=== PATIENT | male | born 1980 | race Caucasian/White ===

== ENCOUNTER 2017-06-18 17:50 | Emergency (ER) | payer SELFPAY ==
[2017-06-18] MEDS ORDERED: Sodium Chloride 0.9% 1,000 ML IV ONE (18:33)
[2017-06-18] MEDS ORDERED: Ondansetron 4 MG/2 ML SDV IVPUSH ONE (18:35)
--- NOTE | 2017-06-18 18:43 | EDM.PDOC ---
<Javan Purcell Ayse - Last Filed: 06/18/17 18:37> ED HPI GENERAL MEDICAL PROBLEM - General Chief Complaint: Gastrointestinal Problem Stated Complaint: THROWING UP MAY HAVE HAD BAD FOOD Time Seen by Provider: 06/18/17 18:20 Source of Information: Reports: Patient History Limitations: Reports: No Limitations - History of Present Illness INITIAL COMMENTS - FREE TEXT/NARRATIVE: 36 y/o M with nausea and vomiting and diarrhea x approx 5 hours. Many episodes of nonbloody vomiting and watery nonbloody diarrhea. Started suddenly around 1pm today. Still nauseated. Not tolerating PO fluids. No abdominal pain. Has chills, no known fever. No known ill contacts. No known exposure to contaminated food or water. Works in the [employer], ate at [employer] yesterday. No recent travel. No cough/SOB or additional complaint. - Related Data Allergies Allergy/AdvReac Type Severity Reaction Status Date / Time shellfish derived Allergy Anaphylactic Verified 06/18/17 18:16 Shock Home Meds: Home Meds Ondansetron [Zofran ODT] 4 mg PO Q6H PRN #12 tab.dis 06/18/17 [Rx] Past Medical History - Past Health History Medical/Surgical History: Denies Medical/Surgical History Social & Family History - Tobacco Use Smoking Status *Q: Never Smoker - Recreational Drug Use Recreational Drug Use: No ED ROS GENERAL - Review of Systems Review Of Systems: See Below Constitutional: Reports: Chills, Malaise. Denies: Fever Respiratory: Denies: Shortness of Breath Cardiovascular: Denies: Chest Pain Endocrine: Reports: No Symptoms GI/Abdominal: Reports: Diarrhea, Nausea, Vomiting. Denies: Abdominal Pain : Reports: No Symptoms Musculoskeletal: Reports: No Symptoms ED EXAM, GI/ABD - Physical Exam Exam: See Below Exam Limited By: No Limitations General Appearance: Alert, WD/WN, No Apparent Distress Eyes: Bilateral: Normal Appearance Ears: Normal External Exam Nose: Normal Inspection Throat/Mouth: Other (dry MM) Head: Atraumatic, Normocephalic Neck: Normal Inspection, Supple, Non-Tender, Full Range of Motion Respiratory/Chest: No Respiratory Distress, Lungs Clear, Normal Breath Sounds, Chest Non-Tender Cardiovascular: Normal Peripheral Pulses, Regular Rate, Rhythm, No Murmur GI/Abdominal Exam: Soft, Non-Tender, No Distention. No: Guarding Back Exam: Normal Inspection Extremities: Normal Inspection Neurological: Alert, Oriented, Normal Cognition Psychiatric: Normal Affect, Normal Mood Skin Exam: Warm, Dry, Intact, Normal Color, No Rash Course - Vital Signs Last Recorded V/S: Last Vital Signs Temp 37.1 C 06/18/17 18:16 Pulse 90 06/18/17 18:16 Resp 17 06/18/17 18:16 BP 130/90 06/18/17 18:16 Pulse Ox 98 06/18/17 18:16 - Orders/Labs/Meds Orders: Active Orders 24 hr Category Date Time Status CBC WITH AUTO DIFF [HEME] Stat Lab 06/18/17 18:35 Results Labs: Laboratory Tests 06/18/17 06/18/17 Range/Units 18:35 18:35 WBC 13.86 H (4.23-9.07) K/mm3 RBC 5.72 (4.63-6.08) M/mm3 Hgb 16.8 (13.7-17.5) gm/L Hct 48.9 (40.1-51.0) % MCV 85.5 (79.0-92.2) fl MCH 29.4 (25.7-32.2) pg MCHC 34.4 (32.2-35.5) g/dl RDW Std Deviation 41.3 (35.1-43.9) fL Plt Count 326 (163-337) K/mm3 MPV 11.1 (9.4-12.3) fl Neut % (Auto) 85.8 H (34.0-67.9) % Lymph % (Auto) 6.6 L (21.8-53.1) % Graves % (Auto) 6.7 (5.3-12.2) % Eos % (Auto) 0.8 (0.8-7.0) Baso % (Auto) 0.1 (0.1-1.2) % Neut # (Auto) 11.88 H (1.78-5.38) K/mm3 Lymph # (Auto) 0.92 L (1.32-3.57) K/mm3 Graves # (Auto) 0.93 H (0.30-0.82) K/mm3 Eos # (Auto) 0.11 (0.04-0.54) K/mm3 Baso # (Auto) 0.02 (0.01-0.08) K/mm3 Sodium 137 (136-145) mEq/L Potassium 4.3 (3.5-5.1) mEq/L Chloride 102 (98-107) mEq/L Carbon Dioxide 26 (21-32) mEq/L Anion Gap 13.3 (5-15) BUN 12 (7-18) mg/dL Creatinine 1.4 H (0.7-1.3) mg/dL Est Cr Clr Drug Dosing 83.23 mL/min Estimated GFR (MDRD) 58 (>60) mL/min BUN/Creatinine Ratio 8.6 L (14-18) Glucose 114 H (74-106) mg/dL Calcium 9.1 (8.5-10.1) mg/dL Magnesium 1.6 L (1.8-2.4) mg/dl Total Bilirubin 0.7 (0.2-1.0) mg/dL AST 21 (15-37) U/L ALT 34 (16-63) U/L Alkaline Phosphatase 74 (46-116) U/L Total Protein 9.1 H (6.4-8.2) g/dl Albumin 4.1 (3.4-5.0) g/dl Globulin 5.0 gm/dL Albumin/Globulin Ratio 0.8 L (1-2) Lipase 120 (73-393) U/L Meds: Medications Discontinued Medications Generic Name Dose Route Start Last Admin Trade Name Freq PRN Reason Stop Dose Admin Sodium Chloride 1,000 mls @ 1,000 mls/hr 06/18/17 18:33 06/18/17 18:52 Normal Saline IV 06/18/17 19:32 1,000 mls/hr ONETIME ONE Administration Ondansetron HCl 4 mg 06/18/17 18:35 06/18/17 18:52 Zofran IVPUSH 06/18/17 18:36 4 mg ONETIME ONE Administration - Re-Assessments/Exams Free Text/Narrative Re-Assessment/Exam: 06/18/17 18:40 Suspect possible food-born toxin mediated vs. infectious gastroenteritis. Patient appears mildly dehydrated and is not tolerating PO fluids, will treat with IV fluids and zofran and reeval. Pt signed out to Dr. Law at 1900, awaiting lab results and reevaluation after fluids/meds. Departure - Departure Disposition: Home, Self-Care 01 Clinical Impression: Vomiting, Diarrhea, Dehydration, mild - Discharge Information Prescriptions: Ondansetron [Zofran ODT] 4 mg PO Q6H PRN #12 tab.dis PRN Reason: Nausea Instructions: Vomiting, Adult, Diarrhea, Adult, [id number] Referrals: PCP,None [Primary Care Provider] - Forms: ED Department Discharge Additional Instructions: 1. Drink plenty of fluids. Clear liquids only until you are feeling better and have an appetite and haven't vomited for several hours. Then advance diet slowly. 2. Take ondansetron as needed for nausea. 3. Return to the ED for a recheck if you are feeling worse, especially if you are vomiting without keeping liquids down, have a fever, abdominal pain, or any other worsening concerning symptoms. <Polo Law - Last Filed: 06/18/17 20:10> Course - Re-Assessments/Exams Free Text/Narrative Re-Assessment/Exam: 06/18/17 20:08 Patient doing much better at this time he wants to go home Departure - Departure Time of Disposition: 20:09
== END 2017-06-18 20:08 | disposition home or self-care (01) ==
LOC: JD.ED 17:50
DX: E86.0 Dehydration (principal); R11.2 Nausea with vomiting, unspecified; R19.7 Diarrhea, unspecified; Z91.013 Allergy to seafood
CPT/HCPCS: 36415; 80053; 83690; 83735; 85025; 96361; 96374; 99284; J2405; J7040

== ENCOUNTER 2017-09-23 23:06 | Emergency (ER) | payer SELFPAY ==
[2017-09-23] MEDS ORDERED: carBAMazepine 200 MG Tab PO ONE (23:36)
[2017-09-23] MEDS ORDERED: Ibuprofen 800 MG Tab PO ONE (23:36)
[2017-09-23] MEDS ORDERED: oxyCODONE 5 MG Tab PO ONE (23:41)
--- NOTE | 2017-09-23 23:41 | EDM.PDOC ---
ED HPI GENERAL MEDICAL PROBLEM - General Chief Complaint: General Stated Complaint: nerve pain in jaw and neck Time Seen by Provider: 09/23/17 23:13 Source of Information: Reports: Patient History Limitations: Reports: No Limitations - History of Present Illness INITIAL COMMENTS - FREE TEXT/NARRATIVE: The patient is a 36-year-old male with a chief complaint of right-sided facial and jaw pain. He's had it for 2 or 3 days. No provoking factors. He gets sharp pain that starts from around his ear and travels down his right jawline. The pain is severe. It keeps him up at night. The pain has been fairly constant. No provoking, exacerbating, or relieving factors. No history of similar symptoms previously. Denies dental pain or gum swelling. No fever. No injury. No ear pain. jaw Pain Score (Numeric/FACES): 7 - Related Data Allergies Allergy/AdvReac Type Severity Reaction Status Date / Time shellfish derived Allergy Anaphylactic Verified 06/18/17 18:16 Shock Home Meds: Home Meds Ibuprofen 800 mg PO TID PRN #40 tablet 09/23/17 [Rx] carBAMazepine [Carbamazepine ER] 200 mg PO BID #28 cpmp.12hr 09/23/17 [Rx] Past Medical History - Past Health History Medical/Surgical History: Denies Medical/Surgical History Social & Family History - Family History Family Medical History: Noncontributory - Tobacco Use Smoking Status *Q: Former Smoker Used Tobacco, but Quit: Yes Month/Year Tobacco Last Used: september Second Hand Smoke Exposure: No - Caffeine Use Caffeine Use: Reports: None - Recreational Drug Use Recreational Drug Use: No ED ROS GENERAL - Review of Systems Review Of Systems: See Below Constitutional: Denies: Fever HEENT: Denies: Dental Pain Respiratory: Denies: Shortness of Breath Cardiovascular: Denies: Chest Pain Endocrine: Reports: No Symptoms GI/Abdominal: Denies: Abdominal Pain Musculoskeletal: Reports: No Symptoms Skin: Reports: No Symptoms Neurological: Reports: No Symptoms ED EXAM, GENERAL - Physical Exam Exam: See Below Exam Limited By: No Limitations General Appearance: Alert, WD/WN, No Apparent Distress Eye Exam: Bilateral Eye: Normal Inspection Ears: Normal External Exam, Normal Canal, Hearing Grossly Normal, Normal TMs Nose: Normal Inspection, Normal Mucosa, No Blood Throat/Mouth: Normal Inspection, Normal Lips, Normal Teeth, Normal Gums, Normal Oropharynx, Normal Voice, No Airway Compromise Head: Atraumatic, Normocephalic. No: Facial Swelling, Facial Tenderness Neck: Normal Inspection, Supple, Non-Tender, Full Range of Motion Respiratory/Chest: No Respiratory Distress, Lungs Clear, Normal Breath Sounds, No Accessory Muscle Use Cardiovascular: Normal Peripheral Pulses, Regular Rate, Rhythm, No Edema, No Murmur Neurological: Alert, Oriented, CN II-XII Intact, Normal Cognition, No Motor/ Sensory Deficits Psychiatric: Normal Affect, Normal Mood Skin Exam: Warm, Dry, Intact, Normal Color, No Rash Course - Vital Signs Last Recorded V/S: Last Vital Signs Temp 36.7 C 09/23/17 23:59 Pulse 85 09/23/17 23:15 Resp 15 09/23/17 23:15 BP 162/97 H 09/23/17 23:15 Pulse Ox 96 09/23/17 23:15 - Orders/Labs/Meds Meds: Medications Discontinued Medications Generic Name Dose Route Start Last Admin Trade Name Wangq PRN Reason Stop Dose Admin Carbamazepine 200 mg 09/23/17 23:36 09/23/17 23:54 Tegretol Tab PO 09/23/17 23:37 200 mg ONETIME ONE Administration Ibuprofen 800 mg 09/23/17 23:36 09/23/17 23:54 Motrin PO 09/23/17 23:37 800 mg ONETIME ONE Administration Oxycodone HCl 5 mg 09/23/17 23:41 09/23/17 23:54 Oxycodone PO 09/23/17 23:42 5 mg ONETIME ONE Administration - Re-Assessments/Exams Free Text/Narrative Re-Assessment/Exam: 09/24/17 04:17 His description sounds somewhat consistent with trigeminal neuralgia. He does not have any positive physical exam findings. Pain is more constant than I would expect for trigeminal neuralgia. It is also possibly related to TMJ dysfunction but his TMJ joint is not particularly tender. His dental exam here is benign. Will treat with carbamazepine for possible trigeminal neuralgia and encouraged him to follow up with his primary care provider for further care. Departure - Departure Time of Disposition: 23:41 Disposition: Home, Self-Care 01 Clinical Impression: Trigeminal neuralgia of right side of face - Discharge Information Prescriptions: carBAMazepine [Carbamazepine ER] 200 mg PO BID #28 cpmp.12hr Ibuprofen 800 mg PO TID PRN #40 tablet PRN Reason: Pain Instructions: Trigeminal Neuralgia Referrals: PCP,None [Primary Care Provider] - Forms: ED Department Discharge Additional Instructions: 1. Take ibuprofen as needed for pain. You may take acetaminophen (Tylenol) as well as ibuprofen. Take oxycodone for severe pain, no driving/working while taking oxycodone as it can make you sleepy or confused. 2. Take carbamazepine as prescribed. This is helpful for trigeminal neuralgia, which is nerve pain in the area you're having pain 3. Follow up with a dentist as soon as you're able to make an appointment to make sure there is no dental explanation for your pain 4. Also follow up with the clinic - call [phone] to schedule with a provider here
== END 2017-09-23 23:57 | disposition home or self-care (01) ==
LOC: JD.ED 23:06
DX: G50.0 Trigeminal neuralgia (principal); Z91.013 Allergy to seafood; Z87.891 Personal history of nicotine dependence
CPT/HCPCS: 99283; A9270

== ENCOUNTER 2018-12-05 01:22 | Emergency (ER) | payer SELFPAY ==
--- NOTE | 2018-12-05 02:11 | EDM.PDOC ---
ED HPI GENERAL MEDICAL PROBLEM - General Chief Complaint: ENT Problem Stated Complaint: SWOLLEN/PAINFUL LEFT SIDE OF FACE Time Seen by Provider: 12/05/18 01:43 Source of Information: Reports: Patient History Limitations: Reports: Physical Impairment (Psychiatric impairment?) - History of Present Illness INITIAL COMMENTS - FREE TEXT/NARRATIVE: The patient speaks with loosening of association and tangentiality, suggesting an underlying psychosis. When asked if he has any psychiatric problems, the patient responded that he has ADHD, but denied any other psychiatric problems. He does not know what, if any, medications he is on. His history is likely inaccurate. The patient states that he has had left facial swelling since Saturday, 2018. He is not sure if he has had dental pain, and he is not sure if he has had a fever; he is afebrile here in the emergency department. The patient carried with him a binder of medical information, however, when it was reviewed by his nurse, it was found to belong to a patient at [facility]. [facility] was contacted, and they informed us that the patient just started staying there yesterday, , 12/04/2018. The patient has a prescription for Augmentin 875 , that appears to have been prescribed from the walk-in clinic, likely started either yesterday or the day before. The patient is unable to say. The patient does not have a PCP. Left Face/Facial Pain Score (Numeric/FACES): 10 - Related Data Allergies Allergy/AdvReac Type Severity Reaction Status Date / Time shellfish Allergy Anaphylactic Uncoded 12/05/18 01:33 Shock Home Meds: Home Meds Amoxicillin/Potassium Clav [Augmentin 875-125 Tablet] 1 tab PO BID 12/05/18 [ History] Past Medical History Psychiatric History: Reports: ADHD Social & Family History - Tobacco Use Smoking Status *Q: Former Smoker Years of Tobacco use: 8 Packs/Tins Daily: 2 Month/Year Tobacco Last Used: Quit 2008 - Alcohol Use Alcohol Use History: Yes Date/Time of Last Drink Comment: none since 2018 - Recreational Drug Use Recreational Drug Use: No - Living Situation & Occupation Living situation: Reports: Occupation: Unemployed ED ROS ENT - Review of Systems Review Of Systems: ROS reveals no pertinent complaints other than HPI. ED EXAM, ENT - Physical Exam Exam: See Below Exam Limited By: No Limitations General Appearance: Alert, WD/WN, No Apparent Distress Eye Exam: Bilateral Eye: EOMI, Normal Inspection Ears: Normal External Exam, Normal Canal, Hearing Grossly Normal, Normal TMs Nose: Normal Inspection, Normal Mucousa, No Blood Mouth/Throat: Normal Lips, Normal Oropharynx, Other (Tooth #1 absent. Teeth #2, 3, 4 with advanced decay. Tooth #5 with decay. Tooth #6 with advanced decay. Tooth #7 absent. Tooth #8 with advanced decay to the gingiva. Tooth #9 with advanced decay. Tooth #10 absent. Teeth #11, 12, 13 with advanced decay to the gingiva. Teeth #14, 15 with advanced decay. Tooth #16 absent. Tooth #17 absent. Teeth #18, 19 with advanced decay. Tooth #20 with posterior decay. Tooth #30 with advanced decay. Tooth #32 absent. There is significant swelling to the entire upper gingiva, but no pointing or drainage seen.) Head: Atraumatic, Normocephalic, Facial Swelling (left), Facial Tenderness (left ) Neck: Normal Inspection, Supple, Non-Tender, Full Range of Motion. No: Lymphadenopathy (L), Lymphadenopathy (R) Respiratory/Chest: No Respiratory Distress, Lungs Clear, Normal Breath Sounds, No Accessory Muscle Use Cardiovascular: Normal Peripheral Pulses, Regular Rate, Rhythm, No Edema, No Gallop, No JVD, No Murmur, No Rub GI/Abdominal: Normal Bowel Sounds, Soft, Non-Tender, No Organomegaly, No Distention, No Abnormal Bruit, No Mass (Male) Exam: Deferred Rectal (Males) Exam: Deferred Back: Normal Inspection, Full Range of Motion Extremities: Normal Inspection, Normal Range of Motion, No Pedal Edema, Normal Capillary Refill Neurological: Alert, Oriented, No Motor/Sensory Deficits Psychiatric: Normal Affect Skin: Warm, Dry, Intact, Normal Color, No Rash Course - Vital Signs Last Recorded V/S: Last Vital Signs Temp 36.3 C 12/05/18 01:28 Pulse 82 12/05/18 01:28 Resp 16 12/05/18 01:28 BP 154/105 H 12/05/18 01:28 Pulse Ox 99 12/05/18 01:28 - Orders/Labs/Meds Orders: Active Orders 24 hr Category Date Time Status Maxillofacial with CM [Max Facial Sinus w Cont] [CT] Exams 12/05/18 02:03 Taken Stat Sodium Chloride 0.9% [Normal Saline] 1,000 ml Med 12/05/18 02:15 Active IV ASDIRECTED Medication Orders Sodium Chloride (Normal Saline) 1,000 mls @ 150 mls/hr IV ASDIRECTED RAFI Last Admin: 12/05/18 02:23 Dose: 150 mls/hr Labs: Laboratory Tests 12/05/18 12/05/18 Range/Units 02:15 02:15 WBC 9.40 H (4.23-9.07) K/mm3 RBC 5.25 (4.63-6.08) M/mm3 Hgb 15.0 (13.7-17.5) gm/L Hct 44.8 (40.1-51.0) % MCV 85.3 (79.0-92.2) fl MCH 28.6 (25.7-32.2) pg MCHC 33.5 (32.2-35.5) g/dl RDW Std Deviation 40.9 (35.1-43.9) fL Plt Count 307 (163-337) K/mm3 MPV 10.6 (9.4-12.3) fl Neutrophils % (Manual) 64 H (40-60) % Band Neutrophils % 0 (0-10) % Lymphocytes % (Manual) 22 (20-40) % Atypical Lymphs % 0 % Monocytes % (Manual) 13 H (2-10) % Eosinophils % (Manual) 1 (0.8-7.0) % Basophils % (Manual) 0 L (0.2-1.2) Platelet Estimate Adequate RBC Morph Comment Normal Sodium 140 (136-145) mEq/L Potassium 4.2 (3.5-5.1) mEq/L Chloride 105 (98-107) mEq/L Carbon Dioxide 29 (21-32) mEq/L Anion Gap 10.2 (5-15) BUN 14 (7-18) mg/dL Creatinine 1.1 (0.7-1.3) mg/dL Est Cr Clr Drug Dosing 103.91 mL/min Estimated GFR (MDRD) > 60 (>60) mL/min BUN/Creatinine Ratio 12.7 L (14-18) Glucose 107 H (74-106) mg/dL Calcium 8.9 (8.5-10.1) mg/dL Total Bilirubin 0.4 (0.2-1.0) mg/dL AST 11 L (15-37) U/L ALT 22 (16-63) U/L Alkaline Phosphatase 68 (46-116) U/L Total Protein 7.3 (6.4-8.2) g/dl Albumin 3.2 L (3.4-5.0) g/dl Globulin 4.1 gm/dL Albumin/Globulin Ratio 0.8 L (1-2) Meds: Medications Generic Name Dose Route Start Last Admin Trade Name Costa PRN Reason Stop Dose Admin Sodium Chloride 1,000 mls @ 150 mls/hr 12/05/18 02:15 12/05/18 02:23 Normal Saline IV 150 mls/hr ASDIRECTED [facility] Administration - Re-Assessments/Exams Free Text/Narrative Re-Assessment/Exam: 12/05/18 02:06 The patient's history is unclear, limited due to an apparent psychiatric impairment. The patient is currently residing at [facility], but his diagnosis is not known to us at this time. He may have schizophrenia. Nevertheless, he has left facial swelling, and advanced upper dental decay with gingival swelling. I'm concerned abated a facial abscess, therefore I have ordered a CT maxillofacial with IV contrast to evaluate, along with some blood work. 12/05/18 03:09 The patient is CBC is remarkable for a WBC count slightly elevated at 9.40, but with 0% bandemia. His CMP is remarkable for a blood glucose slightly elevated at 107, but is otherwise unremarkable. CT maxillofacial with contrast is read by [facility] as: 1. Left-sided facial swelling and infiltration consistent with synovitis. No encapsulated fluid collection is identified. 2. Significant periodontal disease. There are periapical lucencies involving numerous teeth, bilaterally, consistent with periapical abscesses or radicular cysts. 3. Mesially-impacted and mandibular third molars bilaterally. 4. Maxillary sinus disease. The above indicates that the patient has a dental and facial infection, but no abscess that requires immediate drainage. The Augmentin hat he is currently on is an appropriate antibiotic choice, but, ultimately, the patient will need to see a dentist. I will discharge him back [facility] with a list of local dentists. Ordinarily, with an infection like this, I would consider prescribing an opioid , however, given the patient's unknown psychiatric history and current residence at [facility], I believe it would be unwise to prescribe an opioid. I am therefore recommending that he take [id number] ibuprofen. Departure - Departure Time of Disposition: 03:18 Disposition: Home, Self-Care 01 Condition: Good Clinical Impression: Dental infection - Discharge Information *PRESCRIPTION DRUG MONITORING PROGRAM REVIEWED*: Not Applicable *COPY OF PRESCRIPTION DRUG MONITORING REPORT IN PATIENT RADHA: Not Applicable Referrals: PCP,None [Primary Care Provider] - Forms: ED Department Discharge Additional Instructions: You were seen in the emergency room for left facial swelling. Workup in the ER included blood work and a CT scan of your face with IV contrast. The CT scan found a soft tissue infection stemming from upper dental infections. Continue to take the Augmentin that you were previously prescribed, one tablet every 12 hours. Take [id number] ibuprofen, 3-4 tablets (600-800 mg) every 8 hours, with food, as needed for discomfort. Follow-up with a dentist at the next available appointment. A list of local dentists has been provided to you. If any other problems, please do not hesitate to return to the ER. - My Orders Last 24 Hours: My Active Orders 12/05/18 02:03 Maxillofacial with CM [Max Facial Sinus w Cont] [CT] Stat 12/05/18 02:15 Sodium Chloride 0.9% [Normal Saline] 1,000 ml IV ASDIRECTED - Assessment/Plan Last 24 Hours: My Active Orders 12/05/18 02:03 Maxillofacial with CM [Max Facial Sinus w Cont] [CT] Stat 12/05/18 02:15 Sodium Chloride 0.9% [Normal Saline] 1,000 ml IV ASDIRECTED
[2018-12-05] MEDS ORDERED: Sodium Chloride 0.9% 1,000 ML IV SCH (02:15)
--- NOTE | 2018-12-05 08:32 | CT ---
Maxillofacial CT Technique: Multiple axial sections through the maxillofacial structures were obtained from below the mandible superiorly through the frontal sinuses. Intravenous contrast was utilized. Reconstructed coronal and sagittal images were reviewed. Findings: Mild areas of mucosal thickening are noted within the inferior maxillary sinuses. No air-fluid levels are seen within the paranasal sinuses. Numerous dental caries appear to be present. Parotid and submandibular salivary glands are within normal limits. Multiple lymph nodes are seen within the neck. Most prominent lymph nodes are on the left side within the lower face. Lymph nodes are most likely enlarged on an inflammatory basis as mild haziness is seen within fat within the left cheek. There are no fluid collections of abscess being seen. Right and left globes are symmetric. Retrobulbar regions are unremarkable. Normal enhancing vascular structures are noted. Impression: 1. Numerous dental caries. 2. Slightly prominent lymph nodes within the left side of the upper neck most likely on an inflammatory basis. Findings compatible with cellulitis noted within the left cheek. 3. No findings of abscess. 4. Minimal mucosal thickening within the maxillary sinuses which is felt to be pre-existing and not acute. Diagnostic code #3 I agree with preliminary report from [facility], finalized on 12/05/18, 4:06 AM Central Time
== END 2018-12-05 04:11 | disposition home or self-care (01) ==
LOC: MERGE 01:22 → JD.ED 01:22
DX: K04.7 Periapical abscess without sinus (principal); Z91.013 Allergy to seafood; Z87.891 Personal history of nicotine dependence
CPT/HCPCS: 36415; 70487; 80053; 85007; 85027; 96360; 96361; 99284; J7040

== ENCOUNTER 2020-03-28 08:46 | Emergency (ER) | payer MEDICAID ==
[2020-03-28] MEDS ORDERED: Famotidine 20 MG/2 ML SDV IVPUSH ONE (09:24)
[2020-03-28] MEDS ORDERED: diphenhydrAMINE 50 MG/ML SDV IVPUSH ONE (09:24)
[2020-03-28] MEDS ORDERED: methylPREDNISolone Sodium Succinate 125 MG/2 ML SDV IVPUSH ONE (09:24)
[2020-03-28] MEDS ORDERED: Sodium Chloride 0.9% 10 ML Syringe FLUSH PRN (09:28)
--- NOTE | 2020-03-28 09:33 | EDM.PDOC ---
ED HPI GENERAL MEDICAL PROBLEM - General Chief Complaint: Skin Complaint Stated Complaint: SKIN COMPLIANT/RASH,SWOLLEN Time Seen by Provider: 03/28/20 09:20 Source of Information: Reports: Patient History Limitations: Reports: No Limitations - History of Present Illness INITIAL COMMENTS - FREE TEXT/NARRATIVE: 39-year-old male presents to the emergency department from [facility] with complaints of rash. Patient states that rash developed overnight and he woke with it this morning. Micropapular rash noted to dorsal aspect of bilateral feet, bilateral calves, left groin, and bilateral hands more involved between the digits. Hands do show some as well. Patient states rash is pruritic and hot. Denies shortness of breath or difficulty breathing. Patient states he tried hydrocortisone this morning and it did not help. States he had ranch dressing last night with his supper for the first time and this has been the only change in his diet. He denies any new laundry detergents, body washes lotions or fragrances. 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 Patient denies any new medications. He states he has been on all of his current medications for over a year. Onset: Today - Related Data Allergies Allergy/AdvReac Type Severity Reaction Status Date / Time shellfish derived Allergy Anaphylactic Verified 06/18/17 18:16 Shock shellfish Allergy Anaphylactic Uncoded 12/05/18 01:33 Shock Home Meds: Home Meds Ibuprofen 800 mg PO TID PRN #40 tablet 09/23/17 [Rx] carBAMazepine [Carbamazepine ER] 200 mg PO BID #28 cpmp.12hr 09/23/17 [Rx] Amoxicillin/Potassium Clav [Augmentin 875-125 Tablet] 1 tab PO BID 12/05/18 [History] Cetirizine [ZyrTEC] 10 mg PO DAILY #20 tab 03/28/20 [Rx] diphenhydrAMINE HCL [Benadryl] 25 mg PO Q6H #30 capsule 03/28/20 [Rx] predniSONE [Prednisone] 20 mg PO ASDIRECTED #15 tablet 03/28/20 [Rx] Past Medical History - Past Health History Medical/Surgical History: Denies Medical/Surgical History Psychiatric History: Reports: ADHD Social & Family History - Family History Family Medical History: No Pertinent Family History - Caffeine Use Caffeine Use: Reports: None - Living Situation & Occupation Living situation: Reports: Occupation: Unemployed ED ROS GENERAL - Review of Systems Review Of Systems: See Below Constitutional: Reports: No Symptoms, Other (Temp 98 2, pulse 122, respiratory rate 20, blood pressure 143/100, pulse ox 94% on room air.) HEENT: Reports: No Symptoms. Denies: Rhinitis, Throat Swelling Respiratory: Reports: No Symptoms. Denies: Shortness of Breath, Wheezing, Cough Cardiovascular: Reports: No Symptoms. Denies: Chest Pain, Lightheadedness, Palpitations Endocrine: Reports: No Symptoms GI/Abdominal: Reports: No Symptoms : Reports: No Symptoms Musculoskeletal: Reports: No Symptoms Skin: Reports: Pruritis, Rash (Dorsal aspect bilateral hands, dorsal aspect of bilateral feet, left groin, back of both calves.) Neurological: Reports: No Symptoms Hematologic/Lymphatic: Reports: No Symptoms Immunologic: Reports: No Symptoms, Food Allergy ED EXAM, SKIN/RASH Exam: See Below Exam Limited By: No Limitations General Appearance: Alert, WD/WN, No Apparent Distress Eye Exam: Bilateral Eye: PERRL Ears: Normal External Exam Nose: Normal Inspection Throat/Mouth: Normal Inspection, Normal Voice, No Airway Compromise Head: Atraumatic, Normocephalic Neck: Normal Inspection, Supple, Non-Tender, Full Range of Motion Respiratory/Chest: No Respiratory Distress, Lungs Clear, Normal Breath Sounds, No Accessory Muscle Use, Chest Non-Tender. No: Respiratory Distress, Wheezing Cardiovascular: Normal Peripheral Pulses, Regular Rate, Rhythm. No: No Edema (Edema noted to bilateral hands.) Peripheral Pulses: 2+: Radial (L), Radial (R), Dorsalis Pedis (L) GI/Abdominal: Normal Bowel Sounds, Soft, Non-Tender, No Distention (Male) Exam: Deferred Rectal (Males) Exam: Deferred Back Exam: Normal Inspection, Full Range of Motion Extremities: Normal Inspection, Normal Range of Motion, Non-Tender, Normal Capillary Refill Neurological: Alert, Oriented, Normal Cognition, No Motor/Sensory Deficits Psychiatric: Normal Affect, Normal Mood Skin: Warm, Dry, Intact, Normal Color, Rash (Micropapular rash noted to dorsal aspect of bilateral feet, the back of both calves, left groin, dorsal aspect bilateral hands primarily between the digits) Location, Skin: Head, Upper Extremity, Right, Upper Extremity, Left, Lower Extremity, Right, Lower Extremity, Left, Groin (Left groin) Characteristics: Maculopapular, Urticarial Associated features: Warmth, Swelling (Bilateral hands) Lymphatic: No Adenopathy Course - Vital Signs Text/Narrative:: 39-year-old male presents to the emergency department with complaints of a rash. He was sent here from [place]. States he woke with the rash this morning. Micropapular rash noted to bilateral hands specifically in between all digits with edema noted. Maculopapular hive-like rash noted to left groin, the back of both calves, and dorsal aspect of both feet. Patient states it is pruritic in nature and feels like fire. Attempted to take cortisone cream which did not help. Lungs are clear, patient denies any difficulty breathing or shortness of breath. States he did try to eat solid last night for supper with ranch dressing. States he has never had ranch dressing before. Denies any new fragrances, perfumes, lotions or laundry detergents. I have ordered Solu-Medrol 125 mg IV, Benadryl 25 mg IV, and Pepcid 20 mg IV. Last Recorded V/S: Last Vital Signs Temp 98.2 F 03/28/20 09:02 Pulse 122 H 03/28/20 09:02 Resp 20 03/28/20 09:02 BP 143/100 H 03/28/20 09:02 Pulse Ox 94 L 03/28/20 09:02 - Orders/Labs/Meds Orders: Active Orders 24 hr Category Date Time Status Sodium Chloride 0.9% [Saline Flush] Med 03/28/20 09:28 Active 10 ml FLUSH ASDIRECTED PRN Saline Lock Insert [OM.PC] Routine Oth 03/28/20 09:28 Ordered Medication Orders Sodium Chloride (Saline Flush) 10 ml FLUSH ASDIRECTED PRN PRN Reason: Keep Vein Open Last Admin: 03/28/20 10:04 Dose: 10 ml Documented by: DAYDAY Meds: Medications Generic Name Dose Route Start Last Admin Trade Name Freq PRN Reason Stop Dose Admin Sodium Chloride 10 ml 03/28/20 09:28 03/28/20 10:04 Saline Flush FLUSH 10 ml ASDIRECTED PRN Administration Keep Vein Open Discontinued Medications Generic Name Dose Route Start Last Admin Trade Name Freq PRN Reason Stop Dose Admin Diphenhydramine HCl 25 mg 03/28/20 09:24 03/28/20 10:04 Benadryl IVPUSH 03/28/20 09:25 25 mg ONETIME ONE Administration Famotidine 20 mg 03/28/20 09:24 03/28/20 09:48 Pepcid IVPUSH 03/28/20 09:25 20 mg ONETIME ONE Administration Methylprednisolone Sodium Succinate 125 mg 03/28/20 09:24 03/28/20 10:03 Solu-Medrol IVPUSH 03/28/20 09:25 125 mg ONETIME ONE Administration - Re-Assessments/Exams Free Text/Narrative Re-Assessment/Exam: 03/28/20 10:38 Patient states rash is much less pruritic. Denies shortness of breath, or difficulty breathing. Reports chronic cough that has had for years. Patient will be discharged home. Departure - Departure Time of Disposition: 10:44 Disposition: Home, Self-Care 01 Condition: Good Clinical Impression: Urticaria, Pruritic rash Allergic reaction Qualifiers: Encounter type: initial encounter Qualified Code(s): T78.40XA - Allergy, unspecified, initial encounter - Discharge Information Prescriptions: diphenhydrAMINE HCL [Benadryl] 25 mg PO Q6H #30 capsule predniSONE [Prednisone] 20 mg PO ASDIRECTED #15 tablet Cetirizine [ZyrTEC] 10 mg PO DAILY #20 tab Instructions: Hives, Hives, [id number], Rash, Adult, [id number] Referrals: PCP,None [Primary Care Provider] - Forms: ED Department Discharge Additional Instructions: You were seen in the emergency department with complaints of allergic reaction. You were given IV Benadryl, and IV steroid called Solu-Medrol, and IV Pepcid. You will receive sent home with a prescription for Benadryl 25 mg that you can take every 6 hours only as needed for itching. You will need to take prednisone 20 mg 1 tablet twice daily for 5 days then 1 tablet daily until gone. Also begin taking Zyrtec 10 mg daily. Should your condition worsen or change or you experience difficulty breathing please return to the emergency department. Sepsis Event Note (ED) - Evaluation Sepsis Screening Result: No Definite Risk - Focused Exam Vital Signs: Vital Signs Temp Pulse Resp BP Pulse Ox 12/21/20 09:02 98.2 F 122 H 20 143/100 H 94 L - My Orders Last 24 Hours: My Active Orders 03/28/20 09:28 Sodium Chloride 0.9% [Saline Flush] 10 ml FLUSH ASDIRECTED PRN Saline Lock Insert [OM.PC] Routine - Assessment/Plan Last 24 Hours: My Active Orders 03/28/20 09:28 Sodium Chloride 0.9% [Saline Flush] 10 ml FLUSH ASDIRECTED PRN Saline Lock Insert [OM.PC] Routine
== END 2020-03-28 11:00 | disposition home or self-care (01) ==
LOC: JD.ED 08:46
DX: L50.0 Allergic urticaria (principal); Z91.013 Allergy to seafood
CPT/HCPCS: 96374; 96375; 99282; J1200; J2930; J3490

== ENCOUNTER 2020-03-31 09:21 | Emergency (ER) | payer MEDICAID ==
--- NOTE | 2020-03-31 09:40 | EDM.PDOC ---
ED HPI GENERAL MEDICAL PROBLEM - General Chief Complaint: Skin Complaint Stated Complaint: RASH NOT BETTER Time Seen by Provider: 03/31/20 09:38 Source of Information: Reports: Patient History Limitations: Reports: No Limitations - History of Present Illness INITIAL COMMENTS - FREE TEXT/NARRATIVE: Patient presents to the ER with complaints of a rash. He was seen by me in the emergency department approximately 3 days ago with complaints of rash. Patient states that rash has spread and he still having a significant amount of itching despite taking prednisone, Zyrtec, and Benadryl as needed. - Related Data Allergies Allergy/AdvReac Type Severity Reaction Status Date / Time shellfish derived Allergy Anaphylactic Verified 03/31/20 09:44 Shock shellfish Allergy Anaphylactic Uncoded 03/31/20 09:44 Shock Home Meds: Home Meds Ibuprofen 800 mg PO TID PRN #40 tablet 09/23/17 [Rx] carBAMazepine [Carbamazepine ER] 200 mg PO BID #28 cpmp.12hr 09/23/17 [Rx] Amoxicillin/Potassium Clav [Augmentin 875-125 Tablet] 1 tab PO BID 12/05/18 [History] Cetirizine [ZyrTEC] 10 mg PO DAILY #20 tab 03/28/20 [Rx] diphenhydrAMINE HCL [Benadryl] 25 mg PO Q6H #30 capsule 03/28/20 [Rx] predniSONE [Prednisone] 20 mg PO ASDIRECTED #15 tablet 03/28/20 [Rx] Famotidine [Pepcid] 20 mg PO BID #21 tab 03/31/20 [Rx] Past Medical History - Past Health History Medical/Surgical History: Denies Medical/Surgical History Psychiatric History: Reports: ADHD Social & Family History - Family History Family Medical History: No Pertinent Family History - Caffeine Use Caffeine Use: Reports: None - Living Situation & Occupation Living situation: Reports: Occupation: Unemployed ED ROS GENERAL - Review of Systems Review Of Systems: See Below Constitutional: Denies: Fever, Chills HEENT: Reports: No Symptoms Respiratory: Reports: No Symptoms. Denies: Shortness of Breath, Wheezing, Cough Cardiovascular: Reports: No Symptoms Endocrine: Reports: No Symptoms GI/Abdominal: Reports: No Symptoms : Reports: No Symptoms Musculoskeletal: Reports: No Symptoms Skin: Reports: Pruritis, Rash, Urticaria Neurological: Reports: No Symptoms Psychiatric: Reports: No Symptoms Hematologic/Lymphatic: Reports: No Symptoms Immunologic: Reports: No Symptoms ED EXAM, SKIN/RASH Exam: See Below Exam Limited By: No Limitations General Appearance: Alert, WD/WN, No Apparent Distress Ears: Hearing Grossly Normal Nose: Normal Inspection Throat/Mouth: Normal Lips, Normal Voice, No Airway Compromise Head: Atraumatic, Normocephalic Neck: Normal Inspection, Supple, Non-Tender Respiratory/Chest: No Respiratory Distress, Lungs Clear, Normal Breath Sounds, No Accessory Muscle Use, Chest Non-Tender Cardiovascular: Normal Peripheral Pulses, Regular Rate, Rhythm, No Edema, No Murmur GI/Abdominal: Normal Bowel Sounds, Soft, Non-Tender, No Distention (Male) Exam: Deferred Rectal (Males) Exam: Deferred Back Exam: Normal Inspection, Full Range of Motion Extremities: Normal Inspection, Normal Range of Motion, Non-Tender, No Pedal Edema, Normal Capillary Refill, Redness (Right lateral thigh to hip urticaria; ventral aspect of left forearm and bilateral elbows, dorsal aspect bilateral hands: Significantly less erythema and edema than 3 days prior.) Neurological: Alert, Oriented, Normal Cognition Psychiatric: Normal Affect, Normal Mood Skin: Warm, Dry, Intact, Rash (Urticaria noted to right lateral thigh up to hip, urticaria noted to bilateral inner forearms and bilateral elbows, urticaria noted to bilateral dorsal aspect of hands however significantly less swelling and erythema noted to hands specifically in between the digits. Urticaria that was previously noted to the dorsal aspects of the patient's feet, medial calves and left groin almost completely resolved.) Location, Skin: Upper Extremity, Right, Upper Extremity, Left, Lower Extremity, Right Characteristics: Urticarial Lymphatic: No Adenopathy Course - Vital Signs Text/Narrative:: Patient presents with complaints of worsening rash since being seen in the emergency department 3 days ago despite being placed on prednisone, Zyrtec, and Benadryl as needed. Patient states that rash has spread to both his forearms and his legs. Upon physical assessment rash is significantly better than what the patient presented with 3 days ago. Patient had significant erythema to the dorsal aspects of both his feet, hands, inner calves and left groin. Today that is significantly less. There is a fine urticarial rash noted to bilateral forearms and elbows. Urticarial rash also noted upper right thigh into his hip. I have ordered that this patient received 40 mg of Pepcid. Last Recorded V/S: Last Vital Signs Temp 97.5 F 03/31/20 09:36 Pulse 108 H 03/31/20 09:36 Resp 18 03/31/20 09:36 BP 176/93 H 03/31/20 09:36 Pulse Ox 96 03/31/20 09:36 - Orders/Labs/Meds Meds: Medications Discontinued Medications Generic Name Dose Route Start Last Admin Trade Name Costa PRN Reason Stop Dose Admin Famotidine 40 mg 03/31/20 09:51 03/31/20 10:24 Pepcid PO 03/31/20 09:52 Not Given NOW STA Famotidine 40 mg 03/31/20 10:23 03/31/20 10:26 Pepcid PO 03/31/20 10:24 Not Given ONETIME ONE Famotidine 40 mg 03/31/20 10:26 03/31/20 10:31 Pepcid PO 03/31/20 10:27 40 mg ONETIME ONE Administration - Re-Assessments/Exams Free Text/Narrative Re-Assessment/Exam: 03/31/20 11:32 Upon reassessment, itching is slightly less. Patient will be discharged home with a prescription for Pepcid to take twice daily for 7 days and then daily for another 7 days. It is recommended that patient see a primary care physician and have a physical with health maintenance, rash could be due to diabetes or thyroid issues. I also recommend that patient follow-up with [facility] in [place] should his rash persist. Departure - Departure Time of Disposition: 11:43 Disposition: Home, Self-Care 01 Condition: Good Clinical Impression: Allergic reaction Qualifiers: Encounter type: initial encounter Qualified Code(s): T78.40XA - Allergy, unspecified, initial encounter - Discharge Information Prescriptions: Famotidine [Pepcid] 20 mg PO BID #21 tab Instructions: Rash, Adult Referrals: PCP,None [Primary Care Provider] - Forms: ED Department Discharge Additional Instructions: In the emergency department with complaints of persistent rash. It appears that the areas of your rash that you were seen for 3 days ago or significantly better however you have some new areas of rash noted on your body. You were given Pepcid 40 mg orally today in the emergency department. I recommend you continue taking your prednisone as prescribed, Zantac as prescribed, and Benadryl as needed. You will be started on a prescription for Pepcid 20 mg twice daily for 7 days and then 20 mg once daily for another 7 days. Continue taking this medication until it is gone. I recommend that you follow-up with [facility] in [place]. Establish care with a primary care provider in [facility]. You have verbalized that you would like to seek care at [facility] in [place]. The phone number is [phone]. There is a possibility that this rash could be due to diabetic or thyroid issues. It is strongly recommended that you have a full physical work-up. Sepsis Event Note (ED) - Focused Exam Vital Signs: Vital Signs Temp Pulse Resp BP Pulse Ox 03/31/20 09:36 97.5 F 108 H 18 176/93 H 96
[2020-03-31] MEDS ORDERED: Famotidine 40 MG/5 ML Bottle PO STA (09:51)
[2020-03-31] MEDS ORDERED: Famotidine 40 MG/5 ML Bottle PO ONE (10:23)
[2020-03-31] MEDS ORDERED: Famotidine 20 MG Tab PO ONE (10:26)
== END 2020-03-31 12:02 | disposition home or self-care (01) ==
LOC: JD.ED 09:21
DX: L50.0 Allergic urticaria (principal); Z79.899 Other long term (current) drug therapy; Z91.013 Allergy to seafood
CPT/HCPCS: 99282; A9270

== ENCOUNTER 2020-07-02 11:19 | Emergency (ER) | payer MEDICAID ==
[2020-07-02] MEDS ORDERED: Ketorolac 60 MG/2 ML SDV IM ONE (11:56)
--- NOTE | 2020-07-02 12:20 | EDM.PDOC ---
ED HPI GENERAL MEDICAL PROBLEM - General Chief Complaint: Flank Pain Stated Complaint: R SIDE RIB PAIN Time Seen by Provider: 07/02/20 11:40 Source of Information: Reports: Patient, RN Notes Reviewed History Limitations: Reports: No Limitations - History of Present Illness INITIAL COMMENTS - FREE TEXT/NARRATIVE: Patient is a 39-year-old male presenting to the emergency department with complaints of right upper back/posterior rib pain as well as pain in his mid back. 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 Pain is made worse by taking a deep breath or moving. He denies any chronic medical conditions. He has no history of kidney stones. Denies any hematuria, dysuria, or bowel or bladder dysfunction. Right Flank Pain Score (Numeric/FACES): 10 - Related Data Allergies Allergy/AdvReac Type Severity Reaction Status Date / Time diphenhydramine Allergy Severe Hives Verified 07/02/20 11:41 [From Benadryl] shellfish derived Allergy Severe Anaphylactic Verified 07/02/20 11:41 Shock shellfish Allergy Severe Anaphylactic Uncoded 07/02/20 11:41 Shock Home Meds: Home Meds Ibuprofen 800 mg PO TID PRN #40 tablet 09/23/17 [Rx] Cyclobenzaprine [Flexeril] 5 mg PO Q8H PRN #5 tab 07/02/20 [Rx] Naproxen [Naprosyn] 500 mg PO Q12HR 5 Days #10 tab 07/02/20 [Rx] Venlafaxine HCl [Venlafaxine ER] 75 mg PO DAILY 07/02/20 [History] lamoTRIgine [Lamotrigine] 3 tab PO BEDTIME 07/02/20 [History] risperiDONE [Risperidone] 1 tab PO BEDTIME 07/02/20 [History] Past Medical History - Past Health History Medical/Surgical History: Denies Medical/Surgical History Psychiatric History: Reports: ADHD Social & Family History - Family History Family Medical History: No Pertinent Family History - Caffeine Use Caffeine Use: Reports: None - Living Situation & Occupation Living situation: Reports: Occupation: Unemployed ED ROS GENERAL - Review of Systems Review Of Systems: Comprehensive ROS is negative, except as noted in HPI. ED EXAM,LOWER BACK PAIN/INJURY - Physical Exam Exam: See Below Exam Limited By: No Limitations General Appearance: Alert, WD/WN, No Apparent Distress Respiratory/Chest: No Respiratory Distress, Lungs Clear, Normal Breath Sounds, No Accessory Muscle Use, Chest Non-Tender Cardiovascular: Normal Peripheral Pulses, Regular Rate, Rhythm, No Edema, No Gallop, No JVD, No Murmur, No Rub Back Exam: Normal Inspection, CVA Tenderness (R), Paraspinal Tenderness (right flank), Vertebral Tenderness (T9-L2). No: Decreased Range of Motion, Muscle Spasm Neurological: Alert, Normal Mood/Affect, Normal Dorsiflexion, CN II-XII Intact, Normal Plantar Flexion, Normal Gait, Normal Reflexes, No Motor/Sensory Deficits, Oriented x 3 Psychiatric: Normal Affect, Normal Mood Skin Exam: Warm, Dry, Intact, Normal Color, No Rash Course - Vital Signs Last Recorded V/S: Last Vital Signs Temp 97.3 F 07/02/20 11:37 Pulse 114 H 07/02/20 11:37 Resp 20 07/02/20 11:37 BP 146/99 H 07/02/20 11:37 Pulse Ox 93 L 07/02/20 11:37 - Orders/Labs/Meds Labs: Laboratory Tests 07/02/20 07/02/20 07/02/20 Range/Units 12:10 13:22 13:22 WBC 10.88 H (4.23-9.07) K/mm3 RBC 5.18 (4.63-6.08) M/mm3 Hgb 15.0 (13.7-17.5) gm/dl Hct 45.0 (40.1-51.0) % MCV 86.9 (79.0-92.2) fl MCH 29.0 (25.7-32.2) pg MCHC 33.3 (32.2-35.5) g/dl RDW Std Deviation 42.7 (35.1-43.9) fL Plt Count 298 (163-337) K/mm3 MPV 10.3 (9.4-12.3) fl Neut % (Auto) 66.7 (34.0-67.9) % Lymph % (Auto) 23.6 (21.8-53.1) % [place] % (Auto) 7.4 (5.3-12.2) % Eos % (Auto) 1.4 (0.8-7.0) Baso % (Auto) 0.6 (0.1-1.2) % Neut # (Auto) 7.27 H (1.78-5.38) K/mm3 Lymph # (Auto) 2.57 (1.32-3.57) K/mm3 [place] # (Auto) 0.80 (0.30-0.82) K/mm3 Eos # (Auto) 0.15 (0.04-0.54) K/mm3 Baso # (Auto) 0.06 (0.01-0.08) K/mm3 Manual Slide Review Sodium 137 (136-145) mEq/L Potassium 4.1 (3.5-5.1) mEq/L Chloride 99 (98-107) mEq/L Carbon Dioxide 24 (21-32) mEq/L Anion Gap 18.1 H (5-15) BUN 13 (7-18) mg/dL Creatinine 1.3 (0.7-1.3) mg/dL Est Cr Clr Drug Dosing 89.58 mL/min Estimated GFR (MDRD) > 60 (>60) mL/min BUN/Creatinine Ratio 10.0 L (14-18) Glucose 134 H (74-106) mg/dL Calcium 9.3 (8.5-10.1) mg/dL Total Bilirubin 0.4 (0.2-1.0) mg/dL AST 67 H (15-37) U/L ALT 96 H (16-63) U/L Alkaline Phosphatase 73 (46-116) U/L Total Protein 8.4 H (6.4-8.2) g/dl Albumin 4.0 (3.4-5.0) g/dl Globulin 4.4 gm/dL Albumin/Globulin Ratio 0.9 L (1-2) Urine Color Yellow (Yellow) Urine Appearance Clear (Clear) Urine pH 5.0 (5.0-8.0) Ur Specific [place] > or = 1.030 (1.005-1.030) Urine Protein 2+ H (Negative) Urine Glucose (UA) Negative (Negative) Urine Ketones Negative (Negative) Urine Occult Blood Trace-lysed H (Negative) Urine Nitrite Negative (Negative) Urine Bilirubin 1+ H (Negative) Urine Urobilinogen 0.2 (0.2-1.0) Ur Leukocyte Esterase Negative (Negative) Urine RBC 10-20 H (0-5) /hpf Urine WBC 0-5 (0-5) /hpf Ur Squamous Epith Cells 0-5 (0-5) /hpf Urine Bacteria Few (FEW) /hpf Urine Mucus Moderate H (FEW) /hpf Meds: Medications Discontinued Medications Generic Name Dose Route Start Last Admin Trade Name Costa PRN Reason Stop Dose Admin Ketorolac Tromethamine 60 mg 07/02/20 11:56 07/02/20 12:03 Ketorolac 60 Mg/2 Ml Sdv IM 07/02/20 11:57 60 mg ONETIME ONE Administration - Re-Assessments/Exams Free Text/Narrative Re-Assessment/Exam: Patient is a 39-year-old male presenting to the emergency department with complaints of acute onset of right-sided flank pain which radiates down to his mid back. 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 He states he was lifting heavy boxes, therefore he thinks that he may have "turned wrong ". On exam, he does have some mild tenderness to palpation over the right flank and right mid spine. He does have CVA tenderness on the right side. While it is likely he is suffering a muscle strain, kidney stone is also in the differential. I have ordered Toradol 60 mg IM as well as urinalysis. 07/02/20 13:00 Urinalysis shows 2+ protein, trace lysed occult blood, 1+ bili, and 10-20 RBCs. Patient is feeling better after the Toradol. Given the hematuria, I have ordered a CT scan of the abdomen pelvis without contrast. I have also ordered CBC and CMP. Patient did have adequate pain relief with the IM Toradol, therefore IV is not needed at this time. 07/02/20 14:00 Hematology was significant for WBC minimally elevated at 10.88, anion gap 18.1, glucose 134, AST 67, ALT 96. CT scan of the abdomen pelvis showed: 1. Moderately enlarged fatty liver. 2. Nonobstructive right sided nephrocalcinosis. No obstructing ureteral or renal calculus. 3. No acute abdominal or pelvic findings. Discussed with patient that his pain is likely due to muscle strain. I will send a prescription for Naprosyn and Flexeril. Discharge instructions as documented. Departure - Departure Time of Disposition: 14:04 Disposition: Home, Self-Care 01 Condition: Good Clinical Impression: Back strain Qualifiers: Encounter type: initial encounter Qualified Code(s): S39.012A - Strain of muscle, fascia and tendon of lower back, initial encounter - Discharge Information *PRESCRIPTION DRUG MONITORING PROGRAM REVIEWED*: No *COPY OF PRESCRIPTION DRUG MONITORING REPORT IN PATIENT RADHA: No Prescriptions: Cyclobenzaprine [Flexeril] 5 mg PO Q8H PRN #5 tab PRN Reason: Muscle Spasm Naproxen [Naprosyn] 500 mg PO Q12HR 5 Days #10 tab Instructions: Kidney Stones, [id number] Referrals: PCP,None [Primary Care Provider] - Forms: ED Department Discharge, ED Return to Work/School Form Additional Instructions: You were seen in the emergency department today for right-sided back pain. Work-up included blood work, urinalysis, and a CT scan. Results of your work-up found to be normal. You do not have a kidney stone. As discussed, your pain is likely due to a muscle strain. While in the ER, you received an injection of Toradol. A prescription for Naprosyn for pain and Flexeril for muscle spasms has been sent. Take these medications as prescribed. A note has been provided off from work for you for tomorrow. Recommend intermittent heat to the area of discomfort. If you are still having significant discomfort after you have finished the treatment of Naprosyn, recommend follow-up in the clinic. Return to ER as needed. Sepsis Event Note (ED) - Evaluation Sepsis Screening Result: No Definite Risk
--- NOTE | 2020-07-03 09:54 | CT ---
CT abdomen and pelvis Technique: Multiple axial sections were obtained from above the dome of the diaphragm inferiorly through the pubic symphysis. Intravenous and oral contrast was not utilized. Reconstructed coronal and sagittal images were obtained. Comparison: No prior abdominal imaging is available. Findings: Visualized lung bases show nothing acute. Liver shows prominent fatty infiltration and is enlarged. Small nodular area of increased density is noted within the right lobe of the liver measuring about 2.2 cm in size which is nonspecific but is most likely benign. Spleen appears normal in size. Small calcification is seen within the spleen. Adrenal glands show no abnormality. Pancreas appears within normal limits. Gallbladder contains no calcified gallstones. Right kidney shows a small nonobstructing stone measuring about 4.5 mm. Kidneys show no hydronephrosis or ureteral calculi. Abdominal aorta shows no aneurysm. No retroperitoneal adenopathy or mesenteric abnormalities are seen. No pelvic mass or adenopathy is appreciated. No free fluid or inflammatory change is seen. Very minimal fat-containing umbilical hernia is noted. Bone window settings were reviewed which appear within normal limits for the patient's age. Impression: 1. Enlarged liver which shows diffuse fatty infiltration. Small lesion within the right lobe which is most likely benign. 2. Small nonobstructing stone within the right kidney. 3. No acute abnormality is identified on noncontrast CT study of the abdomen and pelvis. Diagnostic code #3 I agree with preliminary report from [facility], finalized on 07/02/20, 2:31 PM Central Daylight Time
== END 2020-07-02 14:18 | disposition home or self-care (01) ==
LOC: JD.ED 11:19
DX: S39.012A Strain of muscle, fascia and tendon of lower back, initial encounter (principal); Z88.5 Allergy status to narcotic agent; Z91.013 Allergy to seafood; X50.0XXA Overexertion from strenuous movement or load, initial encounter; Y93.89 Activity, other specified; Y92.89 Other specified places as the place of occurrence of the external cause
CPT/HCPCS: 36415; 74176; 80053; 81001; 85025; 96372; 99284; J1885

== ENCOUNTER 2020-09-07 09:35 | Emergency (ER) | payer MEDICAID ==
--- NOTE | 2020-09-07 10:21 | EDM.PDOC ---
ED HPI GENERAL MEDICAL PROBLEM - General Chief Complaint: Lower Extremity Injury/Pain Stated Complaint: RT FOOT COMPLAINT Time Seen by Provider: 09/07/20 09:49 Source of Information: Reports: Patient History Limitations: Reports: No Limitations - History of Present Illness INITIAL COMMENTS - FREE TEXT/NARRATIVE: The patient presents with right heal pain. This stared a few days ago. He denies any injury. He feels it is a gout flare up. He has had gout before. He has no other symptoms. Onset: Gradual Duration: Day(s): Location: Reports: Lower Extremity, Right (Heal) Quality: Reports: Sharp Severity: Moderate Improves with: Reports: None Worsens with: Reports: None Associated Symptoms: Reports: No Other Symptoms right foot Pain Score (Numeric/FACES): 8 - Related Data Allergies Allergy/AdvReac Type Severity Reaction Status Date / Time diphenhydramine Allergy Severe Hives Verified 09/07/20 09:48 [From Benadryl] shellfish derived Allergy Severe Anaphylactic Verified 09/07/20 09:48 Shock shellfish Allergy Severe Anaphylactic Uncoded 09/07/20 09:48 Shock Home Meds: Home Meds Ibuprofen 800 mg PO TID PRN #40 tablet 09/23/17 [Rx] Cyclobenzaprine [Flexeril] 5 mg PO Q8H PRN #5 tab 07/02/20 [Rx] Naproxen [Naprosyn] 500 mg PO Q12HR 5 Days #10 tab 07/02/20 [Rx] Venlafaxine HCl [Venlafaxine ER] 75 mg PO DAILY 07/02/20 [History] lamoTRIgine [Lamotrigine] 3 tab PO BEDTIME 07/02/20 [History] risperiDONE [Risperidone] 1 tab PO BEDTIME 07/02/20 [History] Hydrocodone/Acetaminophen [Hydrocodone-Acetamin 5-325 mg] 1 - 2 each PO Q6H PRN #10 tablet 09/07/20 [Rx] Naproxen [Naprosyn] 500 mg PO Q12H PRN #30 tablet 09/07/20 [Rx] Past Medical History - Past Health History Medical/Surgical History: Denies Medical/Surgical History Psychiatric History: Reports: ADHD - Infectious Disease History Infectious Disease History: Reports: Chicken Pox Social & Family History - Family History Family Medical History: No Pertinent Family History - Tobacco Use Tobacco Use Status *Q: Never Tobacco User - Caffeine Use Caffeine Use: Reports: Soda - Recreational Drug Use Recreational Drug Use: No - Living Situation & Occupation Living situation: Reports: Occupation: Unemployed Review of Systems - Review of Systems Review Of Systems: See Below Constitutional: Reports: No Symptoms Eyes: Reports: No Symptoms Ears: Reports: No Symptoms Nose: Reports: No Symptoms Mouth/Throat: Reports: No Symptoms Respiratory: Reports: No Symptoms Cardiovascular: Reports: No Symptoms GI/Abdominal: Reports: No Symptoms Genitourinary: Reports: No Symptoms Musculoskeletal: Reports: Other (Right heal pain) ED EXAM, GENERAL - Physical Exam Exam: See Below Exam Limited By: No Limitations General Appearance: Alert, No Apparent Distress Ears: Normal External Exam Nose: Normal Inspection Head: Atraumatic, Normocephalic Neck: Normal Inspection Respiratory/Chest: No Respiratory Distress, Lungs Clear, Normal Breath Sounds Cardiovascular: Regular Rate, Rhythm, No Edema, No Murmur GI/Abdominal: Soft, Non-Tender, No Organomegaly, No Mass Back Exam: Normal Inspection Extremities: Other (Pain upon palpation to the right heal. No edema or erythema noted.) Course - Vital Signs Last Recorded V/S: Last Vital Signs Temp 97.4 F 09/07/20 09:48 Pulse 96 09/07/20 09:48 Resp 18 09/07/20 09:48 BP 163/93 H 09/07/20 09:48 Pulse Ox 96 09/07/20 09:48 - Re-Assessments/Exams Free Text/Narrative Re-Assessment/Exam: 09/07/20 10:20 I ordered an x-ray of his foot. 09/07/20 10:39 The x-ray looks good. I will get him on an antiinflammatory and something more for pain. Departure - Departure Time of Disposition: 10:45 Disposition: Home, Self-Care 01 Condition: Good Clinical Impression: Gout of right foot Qualifiers: Gout etiology: other secondary cause Chronicity: acute Qualified Code(s): M10.471 - Other secondary gout, right ankle and foot - Discharge Information *PRESCRIPTION DRUG MONITORING PROGRAM REVIEWED*: Not Applicable *COPY OF PRESCRIPTION DRUG MONITORING REPORT IN PATIENT RADHA: Not Applicable Prescriptions: Hydrocodone/Acetaminophen [Hydrocodone-Acetamin 5-325 mg] 1 - 2 each PO Q6H PRN #10 tablet PRN Reason: Pain Naproxen [Naprosyn] 500 mg PO Q12H PRN #30 tablet PRN Reason: Pain Referrals: PCP,None [Primary Care Provider] - Fozia Samuel NP [Nurse Practitioner] - 1 Week Forms: ED Department Discharge Additional Instructions: Take the medication as prescribed. Follow up with your provider within a week. Sepsis Event Note (ED) - Evaluation Sepsis Screening Result: No Definite Risk - Focused Exam Vital Signs: Vital Signs Temp Pulse Resp BP Pulse Ox 09/07/20 09:48 97.4 F 96 18 163/93 H 96
--- NOTE | 2020-09-07 10:35 | CR ---
Right foot: 4 views of the right foot were obtained. Comparison: No prior foot exam is available. Minimal calcification is seen within the distal Achilles tendon close to the attachment to the calcaneus. Joint spaces are preserved. No acute fracture, dislocation or other bony abnormality is appreciated. Impression: 1. Minimal calcification within the distal Achilles tendon. 2. Right foot study is otherwise unremarkable. Diagnostic code #2
== END 2020-09-07 10:51 | disposition home or self-care (01) ==
LOC: JD.ED 09:35
DX: M10.471 Other secondary gout, right ankle and foot (principal); Z91.013 Allergy to seafood; Z88.8 Allergy status to other drugs, medicaments and biological substances
CPT/HCPCS: 73630-26-RT; 73630-RT; 99283

== ENCOUNTER 2020-11-06 15:11 | Emergency (ER) | payer MEDICAID ==
--- NOTE | 2020-11-06 15:48 | EDM.PDOC ---
ED HPI GENERAL MEDICAL PROBLEM - General Chief Complaint: General Stated Complaint: R SIDE RIB AND CHEST PAIN Time Seen by Provider: 11/06/20 15:32 Source of Information: Reports: Patient, RN Notes Reviewed - History of Present Illness INITIAL COMMENTS - FREE TEXT/NARRATIVE: 39 yr old male with R sided chest pain that started a short time ago. Painful to take a deep breath and also certain movements make the pain worse. No cough, fever or chills. Does not feel short of breath. 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 Right Thoracic Pain Score (Numeric/FACES): 10 - Related Data Allergies Allergy/AdvReac Type Severity Reaction Status Date / Time diphenhydramine Allergy Severe Hives Verified 11/06/20 15:23 [From Benadryl] shellfish derived Allergy Severe Anaphylactic Verified 11/06/20 15:23 Shock ranch dressing Allergy Severe Hives Uncoded 11/06/20 15:23 shellfish Allergy Severe Anaphylactic Uncoded 11/06/20 15:23 Shock Home Meds: Home Meds Ibuprofen 800 mg PO TID PRN #40 tablet 09/23/17 [Rx] Venlafaxine HCl [Venlafaxine ER] 75 mg PO DAILY 07/02/20 [History] lamoTRIgine [Lamotrigine] 3 tab PO BEDTIME 07/02/20 [History] risperiDONE [Risperidone] 1 tab PO BEDTIME 07/02/20 [History] Naproxen [Naprosyn] 500 mg PO Q12H PRN #30 tablet 09/07/20 [Rx] Past Medical History - Past Health History Medical/Surgical History: Denies Medical/Surgical History Psychiatric History: Reports: ADHD - Infectious Disease History Infectious Disease History: Reports: Chicken Pox Social & Family History - Family History Family Medical History: No Pertinent Family History - Tobacco Use Tobacco Use Status *Q: Never Tobacco User Second Hand Smoke Exposure: No - Caffeine Use Caffeine Use: Reports: Soda - Recreational Drug Use Recreational Drug Use: No - Living Situation & Occupation Living situation: Reports: Occupation: Unemployed ED ROS GENERAL - Review of Systems Review Of Systems: See Below Constitutional: Denies: Fever, Chills, Diaphoresis HEENT: Reports: No Symptoms Respiratory: Reports: Pleuritic Chest Pain. Denies: Shortness of Breath, Wheezing, Cough Cardiovascular: Reports: Chest Pain GI/Abdominal: Denies: Abdominal Pain, Nausea, Vomiting Musculoskeletal: Denies: Shoulder Pain, Arm Pain, Back Pain Skin: Reports: No Symptoms Neurological: Reports: No Symptoms ED EXAM, GENERAL - Physical Exam Exam: See Below General Appearance: Alert, No Apparent Distress Head: Atraumatic Neck: Supple Respiratory/Chest: No Respiratory Distress, Lungs Clear, Normal Breath Sounds, Other (Tender R lateral chest wall) Cardiovascular: Regular Rate, Rhythm GI/Abdominal: Soft, Non-Tender Back Exam: No: CVA Tenderness (L), CVA Tenderness (R) Extremities: Normal Inspection. No: Leg Pain Neurological: Alert, Oriented, No Motor/Sensory Deficits Course - Vital Signs Last Recorded V/S: Last Vital Signs Temp 97.6 F 11/06/20 15:21 Pulse 100 11/06/20 15:21 Resp 16 11/06/20 15:21 BP 164/99 H 11/06/20 15:21 Pulse Ox 99 11/06/20 15:21 - Orders/Labs/Meds Orders: Active Orders 24 hr Category Date Time Status Chest 1V Frontal [CR] Stat Exams 11/06/20 15:42 Taken - Re-Assessments/Exams Free Text/Narrative Re-Assessment/Exam: 11/06/20 16:32 CXR nl Departure - Departure Time of Disposition: 16:23 Disposition: Home, Self-Care 01 Condition: Fair Clinical Impression: Right-sided chest wall pain - Discharge Information Referrals: PCP,None [Primary Care Provider] - Forms: ED Department Discharge Additional Instructions: Alternate ice and heat to area of injury and discomfort 3 to 4 times daily. Ibuprofen 800 mg 2 to 3 times daily, tylenol in between doses of ibuprofen also 2 to 3 times daily. Follow up clinic as needed. Return to ED as needed if symptoms worsening in any way. Sepsis Event Note (ED) - Evaluation Sepsis Screening Result: No Definite Risk - Focused Exam Vital Signs: Vital Signs Temp Pulse Resp BP Pulse Ox 11/06/20 15:21 97.6 F 100 16 164/99 H 99 - My Orders Last 24 Hours: My Active Orders 11/06/20 15:42 Chest 1V Frontal [CR] Stat - Assessment/Plan Last 24 Hours: My Active Orders 11/06/20 15:42 Chest 1V Frontal [CR] Stat
--- NOTE | 2020-11-07 07:37 | CR ---
Chest: Portable view of the chest was obtained. Comparison: No prior chest imaging is available. Heart size and mediastinum are normal. Lungs are clear with no acute parenchymal change being seen. Slight deformity within the distal right clavicle is seen most likely representing old healed fracture. No acute osseous abnormality is seen. Impression: 1. Probable old healed fracture within the distal right clavicle 2. Nothing acute is appreciated on portable chest x-ray. Diagnostic code #2
== END 2020-11-06 16:35 | disposition home or self-care (01) ==
LOC: JD.ED 15:11
DX: R07.89 Other chest pain (principal); Z88.8 Allergy status to other drugs, medicaments and biological substances; Z91.013 Allergy to seafood; Z91.048 Other nonmedicinal substance allergy status
CPT/HCPCS: 71045; 71045-26; 99283; 99284-25

== ENCOUNTER 2021-01-24 18:06 | Emergency (ER) | payer MEDICAID ==
[2021-01-24] MEDS ORDERED: Orphenadrine 100 MG Tab.ER PO ONE (19:02)
--- NOTE | 2021-01-24 19:05 | EDM.PDOC ---
ED HPI GENERAL MEDICAL PROBLEM - General Chief Complaint: Upper Extremity Injury/Pain Stated Complaint: LEFT SHOULDER PAIN Time Seen by Provider: 01/24/21 18:52 Source of Information: Reports: Patient, RN Notes Reviewed History Limitations: Reports: No Limitations - History of Present Illness INITIAL COMMENTS - FREE TEXT/NARRATIVE: Patient is a 40-year-old male who presents to the ER for the evaluation of his left shoulder pain. 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 States that yesterday was okay but today for about the last 3 hours or so, he has had a dull ache/throb type pain in his left shoulder. He did not fall on the shoulder or incurred any other trauma that he is aware of. He does state that he took 200 mg ibuprofen and some Tylenol for management that seem to knock the pain down a little bit. He points to the top of the trapezius on his left shoulder as to where the pain originated. States it did seem to radiate up into his neck but has stopped at this time. Range of motion in his arm, is somewhat limited due to pain. Patient denies any other sick-like symptoms, fever/chills, cough/shortness of breath, nausea/vomiting/diarrhea. He is denying any sort of numbness or tingling into his left hand. Left Shoulder Pain Score (Numeric/FACES): 8 - Related Data Allergies Allergy/AdvReac Type Severity Reaction Status Date / Time diphenhydramine Allergy Severe Hives Verified 01/24/21 18:27 [From Benadryl] shellfish derived Allergy Severe Anaphylactic Verified 01/24/21 18:27 Shock ranch dressing Allergy Severe Hives Uncoded 11/06/20 15:23 shellfish Allergy Severe Anaphylactic Uncoded 11/06/20 15:23 Shock Home Meds: Home Meds Ibuprofen 800 mg PO TID PRN #40 tablet 09/23/17 [Rx] Venlafaxine HCl [Venlafaxine ER] 75 mg PO DAILY 07/02/20 [History] lamoTRIgine [Lamotrigine] 3 tab PO BEDTIME 07/02/20 [History] risperiDONE [Risperidone] 1 tab PO BEDTIME 07/02/20 [History] Naproxen [Naprosyn] 500 mg PO Q12H PRN #30 tablet 09/07/20 [Rx] Naproxen [Naprosyn] 500 mg PO Q12HR #20 tab 01/24/21 [Rx] Orphenadrine [Norflex] 100 mg PO BID PRN #20 tab 01/24/21 [Rx] Past Medical History - Past Health History Medical/Surgical History: Denies Medical/Surgical History Psychiatric History: Reports: ADHD - Infectious Disease History Infectious Disease History: Reports: Chicken Pox Social & Family History - Family History Family Medical History: No Pertinent Family History - Tobacco Use Tobacco Use Status *Q: Never Tobacco User - Caffeine Use Caffeine Use: Reports: Soda - Living Situation & Occupation Living situation: Reports: Occupation: Unemployed Review of Systems - Review of Systems Review Of Systems: Comprehensive ROS is negative, except as noted in HPI. ED EXAM, GENERAL - Physical Exam Exam: See Below Exam Limited By: No Limitations General Appearance: Alert, WD/WN, No Apparent Distress Respiratory/Chest: No Respiratory Distress, Lungs Clear, Normal Breath Sounds, No Accessory Muscle Use, Chest Non-Tender Cardiovascular: Normal Peripheral Pulses, Regular Rate, Rhythm, No Edema Extremities: Normal Inspection, Normal Capillary Refill, Limited Range of Motion (of left arm/shoulder d/t pain.) Neurological: Alert, Oriented, Normal Cognition, No Motor/Sensory Deficits Psychiatric: Normal Affect, Normal Mood Skin Exam: Warm, Dry, Intact, Normal Color, No Rash Course - Vital Signs Last Recorded V/S: Last Vital Signs Temp 97.4 F 01/24/21 18:25 Pulse 95 01/24/21 18:25 Resp 18 01/24/21 18:25 BP 155/103 H 01/24/21 18:25 Pulse Ox 99 01/24/21 18:25 - Orders/Labs/Meds Meds: Medications Discontinued Medications Generic Name Dose Route Start Last Admin Trade Name Freq PRN Reason Stop Dose Admin Orphenadrine Citrate 100 mg 01/24/21 19:02 01/24/21 19:11 Orphenadrine 100 Mg Tab.Er PO 01/24/21 19:03 100 mg ONETIME ONE Administration - Re-Assessments/Exams Free Text/Narrative Re-Assessment/Exam: 01/24/21 19:05 Patient presents to the ER for his left shoulder pain. It does appear as if maybe he has strained his left trapezius. We will go ahead and try 100 mg p.o. Norflex for initial management. Patient was offered IM Toradol but declined at this time. 01/24/21 19:50 Patient states that he feels much better after the Norflex, we will go ahead and give a prescription for this and Naprosyn and discharged home with general recommendations. Departure - Departure Time of Disposition: 19:51 Disposition: Home, Self-Care 01 Condition: Good Clinical Impression: Strain of trapezius muscle Qualifiers: Encounter type: initial encounter Laterality: left Qualified Code(s): S46.812A - Strain of other muscles, fascia and tendons at shoulder and upper arm level, left arm, initial encounter - Discharge Information *PRESCRIPTION DRUG MONITORING PROGRAM REVIEWED*: No *COPY OF PRESCRIPTION DRUG MONITORING REPORT IN PATIENT RADHA: No Prescriptions: Naproxen [Naprosyn] 500 mg PO Q12HR #20 tab Orphenadrine [Norflex] 100 mg PO BID PRN #20 tab PRN Reason: Spasms Instructions: Muscle Strain, [id number] Referrals: PCP,None [Primary Care Provider] - Forms: ED Department Discharge Additional Instructions: You have been evaluated in the ED for your left shoulder pain. Your clinical course was consistent with a trapezius muscle strain. Management of this will be conservative measures. Please use ice/heat as tolerated to the affected area. You have been given 2 different medications one will be Naprosyn (anti inflammatory), and one will be Norflex (muscle relaxer). You may take 1 tablet of each 2 times a day for the next 10 days. This medication was electronically sent to the [facility] located in the [facility]. Please follow-up with your regular provider for re-evaluation, if your injury is not feeling much better in roughly 7 to 10 days time. Please return to ED if your symptoms should change or worsen. Sepsis Event Note (ED) - Evaluation Sepsis Screening Result: No Definite Risk - Focused Exam Vital Signs: Vital Signs Temp Pulse Resp BP Pulse Ox 01/24/21 18:25 97.4 F 95 18 155/103 H 99
== END 2021-01-24 20:11 | disposition home or self-care (01) ==
LOC: JD.ED 18:06
DX: S46.812A Strain of other muscles, fascia and tendons at shoulder and upper arm level, left arm, initial encounter (principal); Z88.8 Allergy status to other drugs, medicaments and biological substances; Z91.013 Allergy to seafood; Z91.048 Other nonmedicinal substance allergy status; X50.0XXA Overexertion from strenuous movement or load, initial encounter
CPT/HCPCS: 99283; A9270

== ENCOUNTER 2021-05-07 13:05 | Emergency (ER) | payer MEDICAID ==
[2021-05-07] MEDS ORDERED: Sodium Chloride 0.9% 10 ML Syringe FLUSH PRN (13:58)
[2021-05-07] MEDS ORDERED: HYDROmorphone 0.5 MG/0.5 ML Syringe IVPUSH ONE (13:58)
[2021-05-07] MEDS ORDERED: Sodium Chloride 0.9% 500 ML IV ONE (15:49)
== END 2021-05-07 17:32 | disposition home or self-care (01) ==
LOC: JD.ED 13:05
DX: K63.89 Other specified diseases of intestine (principal); I10 Essential (primary) hypertension; E11.9 Type 2 diabetes mellitus without complications; E66.9 Obesity, unspecified; Z68.32 Body mass index [BMI] 32.0-32.9, adult; Z91.013 Allergy to seafood; Z88.8 Allergy status to other drugs, medicaments and biological substances; Z91.048 Other nonmedicinal substance allergy status; Z79.899 Other long term (current) drug therapy
CPT/HCPCS: 36415; 74176; 80053; 81003; 83735; 85025; 86140; 96374; 99284; J1170; 99285

== ENCOUNTER 2021-05-20 11:45 | Emergency (ER) | payer MEDICAID ==
[2021-05-20] MEDS ORDERED: Ketorolac 60 MG/2 ML SDV IM ONE (12:13)
== END 2021-05-20 12:23 | disposition home or self-care (01) ==
LOC: JD.ED 11:45
DX: K02.9 Dental caries, unspecified (principal); I10 Essential (primary) hypertension; E11.9 Type 2 diabetes mellitus without complications; E66.9 Obesity, unspecified; Z68.30 Body mass index [BMI] 30.0-30.9, adult; Z91.013 Allergy to seafood; Z91.048 Other nonmedicinal substance allergy status; Z88.8 Allergy status to other drugs, medicaments and biological substances; Z79.899 Other long term (current) drug therapy; Z79.84 Long term (current) use of oral hypoglycemic drugs
CPT/HCPCS: 99282

== ENCOUNTER 2021-06-19 08:08 | Emergency (ER) | payer MEDICARE, MEDICAID ==
[2021-06-19 09:09] LABS: CORONAVIRUS COVID-19 NAA NEGATIVE (NEGATIVE)
== END 2021-06-19 10:08 | disposition home or self-care (01) ==
LOC: JD.ED 08:08
DX: J40 Bronchitis, not specified as acute or chronic (principal); I10 Essential (primary) hypertension; E11.9 Type 2 diabetes mellitus without complications; E66.9 Obesity, unspecified; Z68.34 Body mass index [BMI] 34.0-34.9, adult; Z91.013 Allergy to seafood; Z88.8 Allergy status to other drugs, medicaments and biological substances; Z79.84 Long term (current) use of oral hypoglycemic drugs; Z79.899 Other long term (current) drug therapy; Z20.822 Contact with and (suspected) exposure to COVID-19
CPT/HCPCS: 0240U; 71045; 99283

== ENCOUNTER 2021-09-30 11:08 | Emergency (ER) | payer MEDICARE, MEDICAID ==
[2021-09-30] MEDS ORDERED: Ketorolac 60 MG/2 ML SDV IM ONE (11:44)
== END 2021-09-30 12:10 | disposition home or self-care (01) ==
LOC: JD.ED 11:08
DX: K08.89 Other specified disorders of teeth and supporting structures (principal); I10 Essential (primary) hypertension; E11.9 Type 2 diabetes mellitus without complications; E66.9 Obesity, unspecified; Z68.33 Body mass index [BMI] 33.0-33.9, adult; Z91.013 Allergy to seafood; Z88.8 Allergy status to other drugs, medicaments and biological substances; Z79.84 Long term (current) use of oral hypoglycemic drugs; Z79.899 Other long term (current) drug therapy
CPT/HCPCS: 96372; 99282; J1885

== ENCOUNTER 2021-10-05 12:55 | Emergency (ER) | payer MEDICARE, MEDICAID ==
[2021-10-05] MEDS ORDERED: Sodium Chloride 0.9% 10 ML Syringe FLUSH PRN (13:16)
== END 2021-10-05 14:53 | disposition home or self-care (01) ==
LOC: JD.ED 12:55
DX: U07.1 COVID-19 (principal); E11.9 Type 2 diabetes mellitus without complications; I10 Essential (primary) hypertension; E66.9 Obesity, unspecified; Z68.1 Body mass index [BMI] 19.9 or less, adult; Z91.013 Allergy to seafood; Z88.8 Allergy status to other drugs, medicaments and biological substances; Z79.899 Other long term (current) drug therapy; Z79.84 Long term (current) use of oral hypoglycemic drugs
CPT/HCPCS: 36415; 80053; 81003; 83605; 85025; 86140; 87040; 87651-QW; 99283; J3490; U0002

== ENCOUNTER 2023-04-02 17:11 | Emergency (ER) | payer MEDICAID, OTHER ==
[2023-04-02] MEDS ORDERED: Diphtheria,Pertussis(Acell),Tetanus Vaccine 0.5 ML Syringe IM ONE (19:13)
== END 2023-04-02 19:39 | disposition home or self-care (01) ==
LOC: JD.ED 17:11
DX: S61.204A Unspecified open wound of right ring finger without damage to nail, initial encounter (principal); I10 Essential (primary) hypertension; E11.9 Type 2 diabetes mellitus without complications; Z79.84 Long term (current) use of oral hypoglycemic drugs; Z91.048 Other nonmedicinal substance allergy status; Z91.013 Allergy to seafood; Z88.8 Allergy status to other drugs, medicaments and biological substances; W31.2XXA Contact with powered woodworking and forming machines, initial encounter
CPT/HCPCS: 73140-26-F7; 73140-F7; 90471; 90715; 99283-25

== ENCOUNTER 2023-07-15 08:50 | Emergency (ER) | payer MEDICARE ==
[2023-07-15 10:22] LABS: BASOPHILS ABSOLUTE AUTO 0.1 K/mm3 (0.0-0.2); BASOPHILS PERCENT AUTO 0.8 % (0.0-1.0); EOSINOPHILS PERCENT AUTO 0.5 % (0.0-6.0); HEMATOCRIT 46.2 % (42.0-52.0); HEMOGLOBIN 15.3 gm/dl (14.0-18.0); IMMATURE GRAN ABSOLUTE AUTO 0.02 K/mm3 (0.00-0.05); IMMATURE GRAN PERCENT AUTO 0.3 % (0.0-0.4); LYMPHOCYTES ABSOLUTE AUTO 1.6 K/mm3 (1.0-4.8); LYMPHOCYTES PERCENT AUTO 27.2 % (24.0-44.0); MEAN CORPUSCULAR HEMOGLOBIN 28.1 pg (28.0-32.0); MEAN CORPUSCULAR HGB CONC 33.1 g/dl (32.0-36.0); MEAN CORPUSCULAR VOLUME 84.8 fl (83.0-99.0); MEAN PLATELET VOLUME 10.3 fl (9.4-12.4); MONOCYTES ABSOLUTE AUTO 0.8 K/mm3 (0.0-0.8); MONOCYTES PERCENT AUTO 12.7 % (0.0-8.0); NEUTROPHILS ABSOLUTE AUTO 3.5 K/mm3 (1.8-7.7); NEUTROPHILS PERCENT AUTO 58.5 % (41.0-71.0); PLATELET COUNT,PLT 225 K/mm3 (150-400); RED BLOOD CELL COUNT 5.45 M/mm3 (4.52-5.90); WHITE BLOOD CELL COUNT,WBC 5.91 K/mm3 (3.9-11.3)
[2023-07-15 10:28] LABS: CORONAVIRUS COVID-19 NAA NEGATIVE (NEGATIVE); INFLUENZA A NAA NEGATIVE (NEGATIVE); RESPIRATORY SYNCYTIAL VIR NAA NEGATIVE (NEGATIVE)
[2023-07-15 10:47] LABS: ALBUMIN 4.1 g/dl (3.4-5.0); ANION GAP 13.5 (5-15); BILIRUBIN TOTAL 0.4 mg/dL (0.2-1.0); CALCIUM 8.5 mg/dL (8.5-10.1); CREATININE 1.5 mg/dL (0.7-1.3); EST CRCL DRUG DOSING (CG) 73.24 mL/min; MAGNESIUM 1.9 mg/dL (1.8-2.4); POTASSIUM,K 4.5 mEq/L (3.5-5.1); PROTEIN TOTAL,TP 8.4 g/dl (6.4-8.2)
[2023-07-15] MEDS: Oseltamivir 75 MG Cap PO ONE (11:33)
== END 2023-07-15 11:36 | disposition home or self-care (01) ==
LOC: JD.ED 08:50
DX: J10.1 Influenza due to other identified influenza virus with other respiratory manifestations (principal); I10 Essential (primary) hypertension; E11.9 Type 2 diabetes mellitus without complications; Z91.030 Bee allergy status; Z88.8 Allergy status to other drugs, medicaments and biological substances; Z91.048 Other nonmedicinal substance allergy status; Z79.899 Other long term (current) drug therapy; Z86.19 Personal history of other infectious and parasitic diseases
CPT/HCPCS: 0241U; 36415; 71046; 80053; 83735; 85025; 99284; A9270

== ENCOUNTER 2024-03-11 14:43 | Emergency (ER) | payer SELFPAY ==
[2024-03-11] MEDS ORDERED: Sodium Chloride 0.9% 1,000 ML IV SCH (16:00)
[2024-03-11] MEDS ORDERED: Iopamidol 755 Mg/ML 100 ML Bottle IVPUSH ONE (16:03)
[2024-03-11] MEDS: Albuterol/Ipratropium 3.0-0.5 MG/3 ML Neb Soln NEB ONE ×2 (16:05)
[2024-03-11] MEDS ORDERED: Sodium Chloride 0.9% 100 ML IV SCH (16:15)
[2024-03-11] MEDS ORDERED: Sodium Chloride 0.9% 10 ML Syringe FLUSH SCH (16:15)
[2024-03-11] MEDS: Acetaminophen/HYDROcodone 325-10 MG Tab PO ONE (17:12)
== END 2024-03-11 17:15 | disposition home or self-care (01) ==
LOC: JD.ED 14:43
DX: S83.412A Sprain of medial collateral ligament of left knee, initial encounter (principal); I10 Essential (primary) hypertension; Z79.899 Other long term (current) drug therapy; Z88.8 Allergy status to other drugs, medicaments and biological substances; Z91.048 Other nonmedicinal substance allergy status; Z91.013 Allergy to seafood; W00.0XXA Fall on same level due to ice and snow, initial encounter
CPT/HCPCS: 73562; 99283; A9270

== ENCOUNTER 2024-12-24 11:30 | Emergency (ER) | payer SELFPAY ==
[2024-12-24 12:29] LABS: BASOPHILS ABSOLUTE AUTO 0.1 K/mm3 (0.0-0.2); BASOPHILS PERCENT AUTO 0.7 % (0.0-1.0); EOSINOPHILS ABSOLUTE AUTO 0.2 K/mm3 (0.0-0.4); EOSINOPHILS PERCENT AUTO 2.6 % (0.0-6.0); IMMATURE GRAN ABSOLUTE AUTO 0.03 K/mm3 (0.00-0.05); IMMATURE GRAN PERCENT AUTO 0.4 % (0.0-0.4); LYMPHOCYTES ABSOLUTE AUTO 2.4 K/mm3 (1.0-4.8); LYMPHOCYTES PERCENT AUTO 33.5 % (24.0-44.0); MEAN PLATELET VOLUME 10.2 fl (9.4-12.4); MONOCYTES ABSOLUTE AUTO 0.5 K/mm3 (0.0-0.8); MONOCYTES PERCENT AUTO 6.4 % (0.0-8.0); NEUTROPHILS ABSOLUTE AUTO 4.1 K/mm3 (1.8-7.7); NEUTROPHILS PERCENT AUTO 56.4 % (41.0-71.0); NRBC ABSOLUTE 0.00 (0.00-0.02); NRBC PERCENT 0.0 % (0.0-0.2); PLATELET COUNT,PLT 295 K/mm3 (150-400); RED BLOOD CELL COUNT 5.23 M/mm3 (4.52-5.90); WHITE BLOOD CELL COUNT,WBC 7.22 K/mm3 (3.9-11.3)
[2024-12-24 12:43] LABS: A/G RATIO 0.9 (1-2); ALANINE AMINOTRANSFERASE,ALT 62.0 U/L (16-63); ASPARTATE AMNIOTRANSFERASE,AST 26.0 U/L (15-37); BILIRUBIN TOTAL 0.5 mg/dL (0.2-1.0); BLOOD UREA NITROGEN,BUN 10.0 mg/dL (7-18); CARBON DIOXIDE,CO2 25.0 mEq/L (21-32); CHLORIDE,CL 102.0 mEq/L (98-107); CREATININE 1.1 mg/dL (0.7-1.3); EST CRCL DRUG DOSING (CG) 97.86 mL/min; ESTIMATED GFR 85.0 mL/min (>60); GLUCOSE RANDOM 105.0 mg/dL (70-99); POTASSIUM,K 4.1 mEq/L (3.5-5.1); PROTEIN TOTAL,TP 8.1 g/dl (6.4-8.2); SODIUM,NA 137.0 mEq/L (136-145)
== END 2024-12-24 13:15 | disposition home or self-care (01) ==
LOC: JD.ED 11:30
DX: N52.9 Male erectile dysfunction, unspecified (principal); I10 Essential (primary) hypertension; K21.9 Gastro-esophageal reflux disease without esophagitis; Z91.013 Allergy to seafood; Z88.8 Allergy status to other drugs, medicaments and biological substances; Z79.899 Other long term (current) drug therapy
CPT/HCPCS: 36415; 80053; 83735; 85025; 99283